=== PATIENT | male | born 1950 | race Caucasian/White ===

== ENCOUNTER → 2021-10-23 | Day surgery (SDC) | payer MEDICARE, BC ==
[~2021-10-23] MED LIST: Ketamine 200 MG/20 ML MDV ONE; Lactated Ringers 1,000 ML IV SCH; Propofol 200 MG/20 ML SDV ONE; fentaNYL 100 MCG/2 ML SDV ONE
[2021-10-23 10:22] VITALS: BP 103/60; PULSE 58
== END ==
LOC: CC.SDS 08:17
PROVIDERS: ATTEND Family Medicine
DX: Z12.11 Encounter for screening for malignant neoplasm of colon (principal); K57.30 Diverticulosis of large intestine without perforation or abscess without bleeding; N40.0 Benign prostatic hyperplasia without lower urinary tract symptoms; I10 Essential (primary) hypertension; E55.9 Vitamin D deficiency, unspecified; N52.9 Male erectile dysfunction, unspecified; E78.00 Pure hypercholesterolemia, unspecified; Z79.82 Long term (current) use of aspirin; Z80.0 Family history of malignant neoplasm of digestive organs; Z87.891 Personal history of nicotine dependence; Z79.899 Other long term (current) drug therapy; Z98.890 Other specified postprocedural states
CPT/HCPCS: 00812; J2704; J3010; J7120

== ENCOUNTER 2021-11-15 14:22 | Emergency (ER) | payer MEDICARE, BC ==
[2021-11-15 15:01] LABS: CHLORIDE,CL 104 mEq/L (98-106); SODIUM,NA 140 mEq/L (136-145)
[2021-11-15 15:16] VITALS: BP 147/79; PULSE 69
[2021-11-15] MEDS ORDERED: Albuterol/Ipratropium 3.0-0.5 MG/3 ML Neb Soln NEB ONE (15:22)
[2021-11-15] MEDS ORDERED: predniSONE 20 MG Tab PO STA (15:28)
== END 2021-11-15 15:53 | disposition home or self-care (01) ==
LOC: CC.ED 14:22
DX: B34.9 Viral infection, unspecified (principal); Z79.82 Long term (current) use of aspirin; Z79.899 Other long term (current) drug therapy; Z87.891 Personal history of nicotine dependence; Z20.822 Contact with and (suspected) exposure to COVID-19
CPT/HCPCS: 36415; 71046; 80053; 84484; 85025; 85379; 86140; 87804; 93005; 94640; 99283; 99285-25; J7512; J7620-GY; U0002

== ENCOUNTER 2022-05-29 18:27 | Emergency (ER) | payer MEDICARE, BC ==
[2022-05-29] MEDS: Bacitracin/Neomycin/Polymyxin B Oint 0.9 GM U/D Packet TOP ONE (18:49)
[2022-05-29] MEDS: Diphtheria,Pertussis(Acell),Tetanus Vaccine 0.5 ML Syringe IM ONE (18:49)
== END 2022-05-29 19:43 | disposition home or self-care (01) ==
LOC: CC.ED 18:27
DX: S69.92XA Unspecified injury of left wrist, hand and finger(s), initial encounter (principal); E78.00 Pure hypercholesterolemia, unspecified; I10 Essential (primary) hypertension; Z79.82 Long term (current) use of aspirin; Z79.899 Other long term (current) drug therapy; Z90.49 Acquired absence of other specified parts of digestive tract; Z23 Encounter for immunization; W86.1XXA Exposure to industrial wiring, appliances and electrical machinery, initial encounter
CPT/HCPCS: 90471; 90715; 99282-25; 99283